=== PATIENT | female | born 1965 | race American Indian/Alaskan Native ===

== ENCOUNTER 2016-10-03 13:51 | Emergency (ER) | payer OTHER ==
--- NOTE | 2016-10-03 14:46 | Emergency Department Report ---
Chief Complaint: Weakness Stated Complaint: LIMITED USE OF LFT LEG/LOW ENERGY Time Seen by Provider: 10/03/16 14:42 - HPI History of Present Illness: PT c/o weakness to her L arm and L leg when she woke up at 0900 on Monday. PT states her bg has been high since Monday. PT states she has no hx of cva - ROS Review of Systems: - cp + elevated bg + left sided weakness - Exam Physical Exam: unequal dock grader strength noted on exam MSE screening note: Focused history and physical exam performed. Due to findings the following was ordered: labs, ekg, ct ED Disposition for MSE Condition: Stable
[2016-10-03 15:06] LABS: Basophils % (Auto) 0.5 % (0.0-1.8); Eosinophils % (Auto) 1.8 % (0.0-4.3); Hematocrit 50.5 % (30.3-42.9); Hemoglobin 16.7 gm/dl (10.1-14.3); Mean Corpuscular HGB Conc 33 % (30-34); Mean Corpuscular Hemoglobin 31 pg (28-32); Mean Corpuscular Volume 93 fl (79-97); Platelet Count 232 K/mm3 (140-440); Red Blood Count 5.42 M/mm3 (3.65-5.03); Red Cell Distribution Width 14.2 % (13.2-15.2)
[2016-10-03 15:16] LABS: INR 0.88 (0.87-1.13)
--- NOTE | 2016-10-03 15:26 | Cat Scan Report ---
CT HEAD WITHOUT CONTRAST INDICATION: Weakness. COMPARISON: None similar. FINDINGS: Noncontrast head CT demonstrates symmetric, age-appropriate ventricles and sulci. Minimal, benign bilateral basal ganglia calcifications. Few left ganglionic/mason radiata/centrum semiovale hypodensities as on axial series 2, images 28-57 noted, exact age indeterminate, though presumed old. No other definite acute infarct, hemorrhage, mass effect or midline shift. No abnormal extra axial fluid collections. Normal posterior fossa with preserved basilar cisterns. Clear anterior paranasal sinuses and right mastoid air cells. Moderate left mastoid air cell opacification. Mild atherosclerotic ICA calcifications. Normal calvarium and scalp. Few radiopaque dental fillings. 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 Please also correlate clinically. If focal neurologic deficits or strong clinical suspicion for an acute infarction exist, additional assessment as with MRI may be considered, as appropriate. Thank you for the opportunity to participate in this patient's care.
[2016-10-03 16:02] LABS: Alanine Aminotransferase 15 units/L (7-56); Albumin 4.1 g/dL (3.9-5); Albumin/Globulin Ratio 1.5 %; Alkaline Phosphatase 97 units/L (35-129); Anion Gap 19 mmol/L; Blood Urea Nitrogen 18 mg/dL (7-17); Calcium 9.1 mg/dL (8.4-10.2); Carbon Dioxide 25 mmol/L (22-30); Creatine Kinase 75 units/L (30-135); Glucose 318 mg/dL (65-100); Potassium 4.6 mmol/L (3.6-5.0); Sodium 139 mmol/L (137-145); Total Protein 6.8 g/dL (6.3-8.2)
[2016-10-03 18:17] LABS: Bilirubin,Urine NEG (Negative); Blood,Urine SM (Negative); Ketones,Urine NEG (Negative); Leukocyte Esterase,Urine TR (Negative); Mucus,Urine FEW /HPF; Nitrite,Urine NEG (Negative); Urobilinogen,Urine < 2.0 mg/dL (<2.0)
[2016-10-03] MEDS ORDERED: APRESOLINE IV ONE (18:55)
[2016-10-03] MEDS ORDERED: APRESOLINE ONE (18:57)
[2016-10-03] MEDS ORDERED: NORMODYNE IV ONE ×3 (20:46→22:00)
--- NOTE | 2016-10-03 21:11 | Emergency Department Report ---
- General Chief complaint: Neuro Symptoms/Deficit Stated complaint: LIMITED USE OF LFT LEG/LOW ENERGY Time Seen by Provider: 10/03/16 14:42 Source: patient Mode of arrival: Ambulatory Limitations: No Limitations - History of Present Illness MD Complaint: generalized weakness, numbness, tingling, lack of energy, difficulty walking -: Gradual Location: LUE (not passing sny gss.) Severity scale (0 -10): 0 - Related Data Previous Rx's Medication Instructions Recorded Last Taken Type Insulin Glargine [Lantus VIAL] 20 unit SUB-Q QHS #1000 units 06/22/16 Unknown Rx Lisinopril [Zestril TAB] 20 mg PO QDAY #30 tablet 06/22/16 Unknown Rx Metformin HCl [Glucophage] 500 mg PO QDAY #30 tablet 06/22/16 Unknown Rx Allergies Allergy/AdvReac Type Severity Reaction Status Date / Time No Known Allergies Allergy Unverified 06/22/16 11:07 ED Review of Systems ROS: Stated complaint: LIMITED USE OF LFT LEG/LOW ENERGY Other details as noted in HPI ED Past Medical Hx - Past Medical History Hx Hypertension: Yes Hx Diabetes: Yes Hx Psychiatric Treatment: Yes (DEPRESSION) - Social History Smoking Status: Current Every Day Smoker - Medications Home Medications: Home Medications Medication Instructions Recorded Confirmed Last Taken Type Insulin Glargine [Lantus VIAL] 20 unit SUB-Q QHS #1000 units 06/22/16 10/03/16 Unknown Rx Lisinopril [Zestril TAB] 20 mg PO QDAY #30 tablet 06/22/16 10/03/16 Unknown Rx Metformin HCl [Glucophage] 500 mg PO QDAY #30 tablet 06/22/16 10/03/16 Unknown Rx ED Physical Exam - General Limitations: No Limitations ED Course Vital Signs 10/03/16 10/03/16 10/03/16 14:42 17:28 17:33 Temperature 98.6 F 97.8 F Pulse Rate 67 69 71 Respiratory 18 16 24 Rate Blood Pressure 225/115 Blood Pressure 204/114 [Right] O2 Sat by Pulse 100 99 Oximetry 10/03/16 10/03/16 10/03/16 17:45 18:00 18:15 Temperature Pulse Rate Respiratory Rate Blood Pressure 242/109 215/102 215/102 Blood Pressure [Right] O2 Sat by Pulse 98 98 97 Oximetry 10/03/16 10/03/16 10/03/16 18:31 18:45 19:00 Temperature Pulse Rate 74 Respiratory 22 Rate Blood Pressure 205/96 205/96 204/100 Blood Pressure [Right] O2 Sat by Pulse 97 98 99 Oximetry 10/03/16 10/03/16 10/03/16 19:05 19:15 19:30 Temperature Pulse Rate 66 71 69 Respiratory 16 14 18 Rate Blood Pressure 219/106 233/111 Blood Pressure 204/100 [Right] O2 Sat by Pulse 100 99 98 Oximetry 10/03/16 10/03/16 10/03/16 19:45 20:01 20:31 Temperature Pulse Rate 108 H 70 88 Respiratory 21 18 20 Rate Blood Pressure 205/103 205/103 205/103 Blood Pressure [Right] O2 Sat by Pulse 98 99 98 Oximetry 10/03/16 10/03/16 10/03/16 20:45 21:00 21:15 Temperature Pulse Rate 84 77 78 Respiratory 25 H 24 13 Rate Blood Pressure 205/103 200/92 204/91 Blood Pressure [Right] O2 Sat by Pulse 99 96 99 Oximetry 10/03/16 10/03/16 10/03/16 21:30 22:00 22:30 Temperature Pulse Rate 86 Respiratory 18 Rate Blood Pressure 211/94 206/88 206/90 Blood Pressure [Right] O2 Sat by Pulse 98 95 97 Oximetry 10/03/16 10/03/16 10/03/16 23:00 23:30 23:41 Temperature Pulse Rate Respiratory Rate Blood Pressure 228/111 214/106 214/106 Blood Pressure [Right] O2 Sat by Pulse 94 96 98 Oximetry 10/04/16 10/04/16 10/04/16 00:00 00:30 01:00 Temperature Pulse Rate 85 81 Respiratory 19 18 Rate Blood Pressure 190/91 183/96 186/87 Blood Pressure [Right] O2 Sat by Pulse 93 96 96 Oximetry ED Medical Decision Making - Lab Data Result diagrams: 10/03/16 14:54 10/03/16 14:54 - Medical Decision Making patient doing well. her BP has been elevated but with no evidence of end organ damage, tolerating po here in the er Critical care attestation.: If time is entered above; I have spent that time in minutes in the direct care of this critically ill patient, excluding procedure time. ED Disposition Clinical Impression: Vomiting Disposition: DC-[id number] OP ADMIT IP TO THIS HOSP Is pt being admited?: No Does the pt Need Aspirin: No Condition: Good Referrals: PRIMARY CARE, [Primary Care Provider] - 3-5 Days Forms: Work/School Release Form(ED) Time of Disposition: 20:53
[2016-10-03] MEDS ORDERED: ZESTRIL ONE (22:54)
[2016-10-03] MEDS ORDERED: ZESTRIL PO ONE (22:57)
[2016-10-04 01:26] VITALS: BP 186/87
== END 2016-10-04 01:35 | disposition admitted as inpatient to this hospital (09) ==
LOC: ED 13:51
DX: R11.10 Vomiting, unspecified (principal); I10 Essential (primary) hypertension; E11.9 Type 2 diabetes mellitus without complications; F17.200 Nicotine dependence, unspecified, uncomplicated; Z79.4 Long term (current) use of insulin
CPT/HCPCS: 36415; 70450; 80053; 81001; 82550; 82805; 82962; 84484; 85025; 85610; 93005; 93010; 96374; 96375; 96376; 99284; J0360

== ENCOUNTER 2017-04-25 08:47 | Emergency (ER) | payer SELFPAY ==
[2017-04-25 09:12] VITALS: BP 184/110
[2017-04-25 10:25] LABS: Basophils # (Auto) 0.1 K/mm3 (0.0-0.1); Basophils % (Auto) 0.5 % (0.0-1.8); Eosinophils # (Auto) 0.1 K/mm3 (0.0-0.4); Eosinophils % (Auto) 1.2 % (0.0-4.3); Hematocrit 42.5 % (30.3-42.9); Lymphocytes # (Auto) 2.4 K/mm3 (1.2-5.4); Lymphocytes % (Auto) 21.2 % (13.4-35.0); Mean Corpuscular HGB Conc 33 % (30-34); Mean Corpuscular Hemoglobin 29 pg (28-32); Mean Corpuscular Volume 89 fl (79-97); Monocytes # (Auto) 0.6 K/mm3 (0.0-0.8); Monocytes % (Auto) 5.6 % (0.0-7.3); Platelet Count 339 K/mm3 (140-440); Red Blood Count 4.79 M/mm3 (3.65-5.03); Red Cell Distribution Width 15.2 % (13.2-15.2)
[2017-04-25 10:42] LABS: BUN/Creatinine Ratio 23; Blood Urea Nitrogen 16 mg/dL (7-17); Hemolysis Index 0
[2017-04-25 11:33] LABS: Bacteria,Urine 2+ /HPF (Negative); Bilirubin,Urine NEG (Negative); Blood,Urine MOD (Negative); Color,Urine Yellow (Yellow); Nitrite,Urine NEG (Negative); Urobilinogen,Urine < 2.0 mg/dL (<2.0)
== END 2017-04-25 21:07 | disposition left against medical advice (07) ==
LOC: ED 08:47
DX: Z53.21 Procedure and treatment not carried out due to patient leaving prior to being seen by health care provider (principal)
CPT/HCPCS: 36415; 80048; 81001; 82805; 82962; 85025

== ENCOUNTER 2017-04-28 18:08 | Inpatient (IN) | payer SELFPAY ==
[2017-04-28 20:48] LABS: Basophils # (Auto) 0.1 K/mm3 (0.0-0.1); Basophils % (Auto) 0.9 % (0.0-1.8); Eosinophils # (Auto) 0.1 K/mm3 (0.0-0.4); Eosinophils % (Auto) 0.9 % (0.0-4.3); Hematocrit 41.7 % (30.3-42.9); Hemoglobin 14.1 gm/dl (10.1-14.3); Lymphocytes # (Auto) 2.2 K/mm3 (1.2-5.4); Lymphocytes % (Auto) 19.7 % (13.4-35.0); Mean Corpuscular HGB Conc 34 % (30-34); Mean Corpuscular Hemoglobin 30 pg (28-32); Mean Corpuscular Volume 90 fl (79-97); Monocytes # (Auto) 0.8 K/mm3 (0.0-0.8); Monocytes % (Auto) 6.7 % (0.0-7.3); Platelet Count 387 K/mm3 (140-440); Red Blood Count 4.67 M/mm3 (3.65-5.03); Red Cell Distribution Width 15.2 % (13.2-15.2)
[2017-04-28 21:29] LABS: Bilirubin,Urine NEG (Negative); Blood,Urine MOD (Negative); Color,Urine Yellow (Yellow); Mucus,Urine FEW /HPF; Nitrite,Urine NEG (Negative); Urobilinogen,Urine < 2.0 mg/dL (<2.0)
--- NOTE | 2017-04-28 21:45 | XRay Report ---
FINAL REPORT EXAM: XR FOOT 2V RT HISTORY: Right great toe wound and swelling TECHNIQUE: 3 views right foot PRIORS: None. FINDINGS: There is soft tissue swelling of the great toe. No soft tissue gas appreciated. No fracture or dislocation identified. Joint spaces are within normal limits. No radiopaque foreign body seen. No soft tissue abnormality identified. IMPRESSION: Soft tissue swelling of the great toe. No acute bony abnormality is identified
--- NOTE | 2017-04-28 22:11 | XRay Report ---
FINAL REPORT EXAM: XR RIBS UNILAT 2V LT HISTORY: Left rib pain TECHNIQUE: Left ribs 4 views PRIORS: None. FINDINGS: No rib fracture identified. No bony lesions seen. No evidence off pneumothorax or pleural effusion within the left amy thorax. Otherwise no acute findings. IMPRESSION: Negative rib series
[2017-04-28 22:21] LABS: BUN/Creatinine Ratio 14; Blood Urea Nitrogen 11 mg/dL (7-17); Calcium 8.7 mg/dL (8.4-10.2); Hemolysis Index 8
[2017-04-29] MEDS ORDERED: NACL 0.9% 1000 ML 1,000 ML IV ONE ×2 (01:38→04:43)
[2017-04-29] MEDS ORDERED: CLEOCIN IV ONE (02:39)
--- NOTE | 2017-04-29 02:41 | Emergency Department Report ---
ED General Adult HPI - General Chief complaint: Hyperglycemia Stated complaint: RIGHT FOOT PAIN Time Seen by Provider: 04/29/17 01:41 Source: patient Mode of arrival: Ambulatory Limitations: No Limitations - History of Present Illness Initial comments: Here for evaluation of multiple complaints. She is out of her diabetes medicine and her blood pressure pills, she fell last week and bruised her left ribs and she has since developed a right great toe with redness and swelling to the right foot -: unknown Location: chest, right, lower extremity Associated Symptoms: chest pain. denies: confusion, cough, diaphoresis, fever/ chills, headaches, loss of appetite, malaise, nausea/vomiting, rash, seizure, shortness of breath, syncope, weakness - Related Data Previous Rx's Medication Instructions Recorded Last Taken Type Insulin Glargine [Lantus VIAL] 20 unit SUB-Q QHS #1000 units 06/22/16 Unknown Rx Lisinopril [Zestril TAB] 20 mg PO QDAY #30 tablet 06/22/16 Unknown Rx Metformin HCl [Glucophage] 500 mg PO QDAY #30 tablet 06/22/16 Unknown Rx Allergies Allergy/AdvReac Type Severity Reaction Status Date / Time No Known Allergies Allergy Unverified 06/22/16 11:07 ED Review of Systems ROS: Stated complaint: RIGHT FOOT PAIN Other details as noted in HPI Comment: All other systems reviewed and negative Constitutional: denies: chills, diaphoresis, fever, malaise, weakness Respiratory: denies: cough, orthopnea, shortness of breath, SOB with exertion, SOB at rest, stridor, wheezing Cardiovascular: chest pain. denies: palpitations, dyspnea on exertion, orthopnea, edema, syncope, paroxysmal nocturnal dyspnea Gastrointestinal: denies: diarrhea, constipation, hematemesis, melena, hematochezia Musculoskeletal: arthralgia, myalgia. denies: joint swelling Skin: change in color Neurological: denies: headache, weakness, numbness, paresthesias, confusion, abnormal gait, vertigo ED Past Medical Hx - Past Medical History Hx Hypertension: Yes Hx Diabetes: Yes Hx Psychiatric Treatment: Yes (DEPRESSION) Additional medical history: Neuropathy - Surgical History Past Surgical History?: No - Social History Smoking Status: Current Every Day Smoker Substance Use Type: None - Medications Home Medications: Home Medications Medication Instructions Recorded Confirmed Last Taken Type Insulin Glargine [Lantus VIAL] 20 unit SUB-Q QHS #1000 units 06/22/16 10/03/16 Unknown Rx Lisinopril [Zestril TAB] 20 mg PO QDAY #30 tablet 06/22/16 10/03/16 Unknown Rx Metformin HCl [Glucophage] 500 mg PO QDAY #30 tablet 06/22/16 10/03/16 Unknown Rx ED Physical Exam - General Limitations: No Limitations General appearance: alert - Head Head exam: Present: atraumatic, normocephalic - Eye Eye exam: Present: normal appearance, PERRL, EOMI - ENT ENT exam: Present: normal exam, normal orophraynx, mucous membranes dry (great toe infection / doral reddness and warmth r foot) - Neck Neck exam: Present: normal inspection. Absent: tenderness, meningismus - Respiratory Respiratory exam: Present: normal lung sounds bilaterally, chest wall tenderness. Absent: respiratory distress, wheezes, rales, rhonchi, stridor, accessory muscle use, decreased breath sounds, prolonged expiratory - Cardiovascular Cardiovascular Exam: Present: regular rate, normal rhythm, normal heart sounds. Absent: irregular rhythm, systolic murmur, diastolic murmur, rubs, gallop - GI/Abdominal GI/Abdominal exam: Present: soft. Absent: distended, tenderness, guarding, rebound, organomegaly, mass, pulsatile mass - Extremities Exam Extremities exam: Present: other (infected diabetic foot ulcer right great toe with redness to the dorsum) - Neurological Exam Neurological exam: Present: oriented X3, CN II-XII intact. Absent: motor sensory deficit - Psychiatric Psychiatric exam: Present: normal affect - Skin Skin exam: Present: erythema. Absent: petechiae, pallor, ecchymosis ED Course Vital Signs 04/28/17 04/28/17 04/29/17 20:00 23:55 00:00 Temperature 97.6 F Pulse Rate 94 H 99 H 99 H Respiratory 16 18 18 Rate Blood Pressure 184/93 149/99 149/99 O2 Sat by Pulse 99 100 Oximetry 04/29/17 04/29/17 04/29/17 01:45 01:48 02:00 Temperature Pulse Rate 104 H 93 H Respiratory 16 15 21 Rate Blood Pressure 163/106 O2 Sat by Pulse 100 100 Oximetry 04/29/17 04/29/1718 03:04 03:16 03:30 Temperature Pulse Rate Respiratory Rate Blood Pressure 163/106 207/103 213/121 O2 Sat by Pulse 100 100 100 Oximetry 04/29/17 04/29/17 04/29/17 03:46 04:00 04:16 Temperature Pulse Rate Respiratory Rate Blood Pressure 213/121 198/109 198/109 O2 Sat by Pulse 99 99 98 Oximetry - Reevaluation(s) Reevaluation #1: 04/29/17 04:53 ED course. Given insulin was given antibiotics were given patient did have blood cultures and x-rays ,the trauma did appear to be isolated to the left rib cage these x-rays were negative he she denies head injury or neck or back pain no abdominal pain ED Medical Decision Making - Lab Data Result diagrams: 04/28/17 Unknown 04/28/17 Unknown - Radiology Data Radiology results: report reviewed - Medical Decision Making case d/w dr lassiter for admit givne elev bg and bp , noncompliance and infected diabetic foot w/ cellulitis, pt is cultured and received abx, ag=15, received ivf and insulin in ed and will admit Critical care attestation.: If time is entered above; I have spent that time in minutes in the direct care of this critically ill patient, excluding procedure time. ED Disposition Clinical Impression: Diabetic foot infection, Poorly controlled diabetes mellitus Disposition: OP ADMIT IP TO THIS HOSP Is pt being admited?: Yes Condition: Stable Instructions: Diabetes Mellitus Type 2 in Adults (ED) Referrals: LEEROY MARINO MD [Primary Care Provider] - 3-5 Days Time of Disposition: 04:57
--- NOTE | 2017-04-29 03:04 | XRay Report ---
FINAL REPORT EXAM: XR CXR CLINICAL INDICATIONS: WHEEZING FINDINGS: Frontal and lateral views the chest were acquired. The heart is normal in size. There is a left midlung and left basilar linear scarring versus atelectasis. No acute consolidative infiltrate is seen. The pulmonary vasculature is within normal limits. IMPRESSION: NO ACUTE CONSOLIDATIVE INFILTRATE
[2017-04-29] MEDS ORDERED: CATAPRES PO ONE (04:40)
[2017-04-29] MEDS ORDERED: D50W (25GM) Syringe IV PRN (04:59)
[2017-04-29] MEDS: NOVOLOG SUB-Q SCH ×6 (08:00→23:32)
[2017-04-29] MEDS ORDERED: TYLENOL PO PRN (11:55)
[2017-04-29] MEDS ORDERED: ZOFRAN IV PRN (11:55)
[2017-04-29] MEDS ORDERED: MILK OF MAGNESIA PO PRN (11:55)
[2017-04-29] MEDS ORDERED: DULCOLAX PR PRN (11:55)
[2017-04-29] MEDS ORDERED: MORPHINE IV PRN (11:55)
--- NOTE | 2017-04-29 11:55 | History and Physical Report ---
History of Present Illness Date of examination: 04/29/17 Date of admission: 04/29/17 04:58 Chief complaint: Rt Foot swelling History of present illness: History of Present Illness 52 y/o female with pmh of HTN and DM noncompliant comes in for Rt great toe infection ulcer and rt foot swelling.No fever or chills She fell last week and bruised her left ribs and she has since developed a right great toe with redness and swelling to the right foot Location: chest, right, lower extremity Associated Symptoms: chest pain. denies: confusion, cough, diaphoresis, fever/ chills, headaches, loss of appetite, malaise, nausea/vomiting, rash, seizure, shortness of breath, syncope, weakness Past Medical History Hx Hypertension: Yes Hx Diabetes: Yes Hx Psychiatric Treatment: Yes (DEPRESSION) Additional medical history: Neuropathy Surgical History Past Surgical History?: No Social History Smoking Status: Current Every Day Smoker Substance Use Type: None Medications Home Medications: Home Medications Medication Instructions Recorded Confirmed Last Taken Type Insulin Glargine [Lantus VIAL] 20 unit SUB-Q QHS #1000 units 06/22/16 10/03/16 Unknown Rx Lisinopril [Zestril TAB] 20 mg PO QDAY #30 tablet 06/22/16 10/03/16 Unknown Rx Metformin HCl [Glucophage] 500 mg PO QDAY #30 tablet 06/22/16 10/03/16 Unknown Rx Review of Systems Stated complaint: RIGHT FOOT PAIN Other details as noted in HPI Comment: All other systems reviewed and negative Constitutional: denies: chills, diaphoresis, fever, malaise, weakness Respiratory: denies: cough, orthopnea, shortness of breath, SOB with exertion, SOB at rest, stridor, wheezing Cardiovascular: chest pain. denies: palpitations, dyspnea on exertion, orthopnea, edema, syncope, paroxysmal nocturnal dyspnea Gastrointestinal: denies: diarrhea, constipation, hematemesis, melena, hematochezia Musculoskeletal: arthralgia, myalgia. denies: joint swelling Skin: change in color Neurological: denies: headache, weakness, numbness, paresthesias, confusion, abnormal gait, vertigo Medications and Allergies Allergies Allergy/AdvReac Type Severity Reaction Status Date / Time No Known Allergies Allergy Unverified 06/22/16 11:07 Home Medications Medication Instructions Recorded Confirmed Last Taken Type Insulin Glargine [Lantus VIAL] 20 unit SUB-Q QHS #1000 units 06/22/16 04/29/17 Unknown Rx Lisinopril [Zestril TAB] 20 mg PO QDAY #30 tablet 06/22/16 04/29/17 Unknown Rx Metformin HCl [Glucophage] 500 mg PO QDAY #30 tablet 06/22/16 04/29/17 Unknown Rx Active Meds: Active Medications Dextrose (D50w (25gm) Syringe) 50 ml IV PRN PRN PRN Reason: Hypoglycemia Insulin Aspart (Novolog) 0 units SUB-Q ACHS VERITO PRN Reason: Protocol Last Admin: 04/29/17 08:00 Dose: 3 units Exam - Constitutional Vitals: Temp Pulse Resp BP Pulse Ox 98.5 F 79 20 170/101 98 04/29/17 07:24 04/29/17 07:18 04/29/17 07:18 04/29/17 07:18 04/29/17 07:18 General appearance: Present: no acute distress, well-nourished - EENT Eyes: Present: PERRL ENT: hearing intact, clear oral mucosa - Neck Neck: Present: supple, normal ROM - Respiratory Respiratory effort: normal Respiratory: bilateral: CTA - Cardiovascular Heart rate: 76 Rhythm: regular Heart Sounds: Present: S1 & S2. Absent: rub, click - Extremities Extremities: no ischemia, pulses intact, pulses symmetrical, No edema, abnormal (Rt great toe red and swollen Rt foot swollen and warm to touch) Peripheral Pulses: within normal limits - Abdominal General gastrointestinal: Present: soft, non-tender, non-distended, normal bowel sounds Female genitourinary: Present: normal - Integumentary Integumentary: Present: clear, warm, dry - Musculoskeletal Musculoskeletal: gait normal, strength equal bilaterally - Psychiatric Psychiatric: appropriate mood/affect, intact judgment & insight - Neurologic Neurologic: CNII-XII intact, moves all extremities Results - Labs CBC & Chem 7: 04/28/17 Unknown 04/28/17 Unknown Labs: Laboratory Last Values WBC 11.4 K/mm3 (4.5-11.0) H 04/28/17 Unknown RBC 4.67 M/mm3 (3.65-5.03) 04/28/17 Unknown Hgb 14.1 gm/dl (10.1-14.3) 04/28/17 Unknown Hct 41.7 % (30.3-42.9) 04/28/17 Unknown MCV 90 fl (79-97) 04/28/17 Unknown MCH 30 pg (28-32) 04/28/17 Unknown MCHC 34 % (30-34) 04/28/17 Unknown RDW 15.2 % (13.2-15.2) 04/28/17 Unknown Plt Count 387 K/mm3 (140-440) 04/28/17 Unknown Lymph % (Auto) 19.7 % (13.4-35.0) 04/28/17 Unknown [place] % (Auto) 6.7 % (0.0-7.3) 04/28/17 Unknown Eos % (Auto) 0.9 % (0.0-4.3) 04/28/17 Unknown Baso % (Auto) 0.9 % (0.0-1.8) 04/28/17 Unknown Lymph # 2.2 K/mm3 (1.2-5.4) 04/28/17 Unknown [place] # 0.8 K/mm3 (0.0-0.8) 04/28/17 Unknown Eos # 0.1 K/mm3 (0.0-0.4) 04/28/17 Unknown Baso # 0.1 K/mm3 (0.0-0.1) 04/28/17 Unknown Seg Neutrophils % 71.8 % (40.0-70.0) H 04/28/17 Unknown Seg Neutrophils # 8.2 K/mm3 (1.8-7.7) H 04/28/17 Unknown Sodium 138 mmol/L (137-145) 04/28/17 Unknown Potassium 3.9 mmol/L (3.6-5.0) 04/28/17 Unknown Chloride 96.8 mmol/L (98-107) L 04/28/17 Unknown Carbon Dioxide 26 mmol/L (22-30) 04/28/17 Unknown Anion Gap 19 mmol/L 04/28/17 Unknown BUN 11 mg/dL (7-17) 04/28/17 Unknown Creatinine 0.8 mg/dL (0.7-1.2) 04/28/17 Unknown Estimated GFR > 60 ml/min 04/28/17 Unknown BUN/Creatinine Ratio 14 % 04/28/17 Unknown Glucose 447 mg/dL (65-100) H 04/28/17 Unknown POC Glucose 192 (70-105) H 04/29/17 08:02 Calcium 8.7 mg/dL (8.4-10.2) 04/28/17 Unknown Urine Color Yellow (Yellow) 04/28/17 Unknown Urine Turbidity Clear (Clear) 04/28/17 Unknown Urine pH 6.0 (5.0-7.0) 04/28/17 Unknown Ur Specific [place] 1.020 (1.003-1.030) 04/28/17 Unknown Urine Protein 100 mg/dl mg/dL (Negative) 04/28/17 Unknown Urine Glucose (UA) >=500 mg/dL (Negative) 04/28/17 Unknown Urine Ketones Tr mg/dL (Negative) 04/28/17 Unknown Urine Blood Mod (Negative) 04/28/17 Unknown Urine Nitrite Neg (Negative) 04/28/17 Unknown Urine Bilirubin Neg (Negative) 04/28/17 Unknown Urine Urobilinogen < 2.0 mg/dL (<2.0) 04/28/17 Unknown Ur Leukocyte Esterase Neg (Negative) 04/28/17 Unknown Urine WBC (Auto) 7.0 /HPF (0.0-6.0) H 04/28/17 Unknown Urine RBC (Auto) 6.0 /HPF (0.0-6.0) 04/28/17 Unknown U Epithel Cells (Auto) 5.0 /HPF (0-13.0) 04/28/17 Unknown Urine Mucus Few /HPF 04/28/17 Unknown - Imaging and Cardiology Chest x-ray: report reviewed (No rib fractures) Assessment and Plan VTE prophylaxis?: Chemical Plan of care discussed with patient/family: Yes - Patient Problems (1) Diabetic foot infection Current Visit: Yes Status: Acute Plan to address problem: IV abx and wound care for now Surgery consult (2) Poorly controlled diabetes mellitus Current Visit: Yes Status: Chronic Plan to address problem: Adjust meds Patient will benefit from Insulin Hopefully she will be able to buy Relion 11/13 which is available at [employer] for 25$$ at [employer] Check A1c (3) HTN (hypertension) Current Visit: Yes Status: Chronic Qualifiers: Hypertension type: essential hypertension Qualified Code(s): I10 - Essential (primary) hypertension Plan to address problem: Cont Antihypertensives (4) Chest wall pain Current Visit: Yes Status: Acute (5) Acute chest wall pain Current Visit: Yes Status: Acute Plan to address problem: Sec to fall. No rib fractures (6) DVT prophylaxis Current Visit: Yes Status: Acute Plan to address problem: lovenox
[2017-04-29] MEDS ORDERED: VANCOMYCIN PHARMACY TO DOSE IV SCH (13:00)
[2017-04-29] MEDS: UNASYN/NS 3 GM/100 ML 3 GM/100 ML BAG IV SCH ×2 (13:55→19:11)
[2017-04-29] MEDS ORDERED: VANCOMYCIN 1,500 MG in NACL 0.9% 500 ML 500 ML IV ONE (14:00)
[2017-04-29] MEDS ORDERED: NON-FORMULARY (Insulin Glargine 20 UNIT) SUB-Q SCH (22:00)
[2017-04-29] MEDS: LEVEMIR SUB-Q SCH (23:32)
[2017-04-30] MEDS: PEPCID IV SCH ×3 (00:24→23:33)
[2017-04-30] MEDS: VANCOMYCIN 1,250 MG in NACL 0.9% 250ML 250 ML IV SCH ×2 (02:23→14:44)
[2017-04-30] MEDS: UNASYN/NS 3 GM/100 ML 3 GM/100 ML BAG IV SCH ×5 (04:58→23:53)
[2017-04-30] MEDS: NOVOLOG SUB-Q SCH ×5 (08:49→23:51)
--- NOTE | 2017-04-30 09:21 | Progress Note ---
Assessment and Plan Assessment and plan: Sepsis. Present on admission. Etiology secondary to right diabetic foot infection. Continue IV antibiotics and follow-up cultures. Diabetic foot infection. Patient with right great toe infection. Continue IV antibiotics and wound care. Surgery consulted. Diabetes mellitus type 2. Uncontrolled. Long-acting insulin has been added to the regimen. Increase 70/30 insulin to 25 units BID. Follow-up hemoglobin A1c. Continue Accu-Cheks and sliding scale. Hypertension. Continue antihypertensive medications. Costochondritis. Etiology secondary to fall. No rib fractures. DVT prophylaxis. Continue Lovenox. History Interval history: No new issues overnight. Hospitalist Physical - Constitutional Vitals: Temp Pulse Resp BP Pulse Ox 98.5 F 85 20 170/69 99 04/29/17 21:00 04/29/17 21:00 04/29/17 22:00 04/29/17 21:00 04/29/17 22:00 General appearance: Present: no acute distress, well-nourished - EENT Eyes: Present: PERRL, EOM intact ENT: hearing intact, clear oral mucosa, dentition normal - Neck Neck: Present: supple, normal ROM - Respiratory Respiratory effort: normal Respiratory: bilateral: CTA - Cardiovascular Rhythm: regular Heart Sounds: Present: S1 & S2. Absent: gallop, rub - Extremities Extremities: no ischemia, Full ROM Extremity abnormal: erythema, other (right great toe infection) - Abdominal General gastrointestinal: soft, non-tender, non-distended, normal bowel sounds - Integumentary Integumentary: Present: clear, warm, dry - Neurologic Neurologic: CNII-XII intact, moves all extremities Results - Labs CBC & Chem 7: 04/28/17 Unknown 04/28/17 Unknown Labs: Laboratory Last Values WBC 11.4 K/mm3 (4.5-11.0) H 04/28/17 Unknown RBC 4.67 M/mm3 (3.65-5.03) 04/28/17 Unknown Hgb 14.1 gm/dl (10.1-14.3) 04/28/17 Unknown Hct 41.7 % (30.3-42.9) 04/28/17 Unknown MCV 90 fl (79-97) 04/28/17 Unknown MCH 30 pg (28-32) 04/28/17 Unknown MCHC 34 % (30-34) 04/28/17 Unknown RDW 15.2 % (13.2-15.2) 04/28/17 Unknown Plt Count 387 K/mm3 (140-440) 04/28/17 Unknown Lymph % (Auto) 19.7 % (13.4-35.0) 04/28/17 Unknown [place] % (Auto) 6.7 % (0.0-7.3) 04/28/17 Unknown Eos % (Auto) 0.9 % (0.0-4.3) 04/28/17 Unknown Baso % (Auto) 0.9 % (0.0-1.8) 04/28/17 Unknown Lymph # 2.2 K/mm3 (1.2-5.4) 04/28/17 Unknown [place] # 0.8 K/mm3 (0.0-0.8) 04/28/17 Unknown Eos # 0.1 K/mm3 (0.0-0.4) 04/28/17 Unknown Baso # 0.1 K/mm3 (0.0-0.1) 04/28/17 Unknown Seg Neutrophils % 71.8 % (40.0-70.0) H 04/28/17 Unknown Seg Neutrophils # 8.2 K/mm3 (1.8-7.7) H 04/28/17 Unknown Sodium 138 mmol/L (137-145) 04/28/17 Unknown Potassium 3.9 mmol/L (3.6-5.0) 04/28/17 Unknown Chloride 96.8 mmol/L (98-107) L 04/28/17 Unknown Carbon Dioxide 26 mmol/L (22-30) 04/28/17 Unknown Anion Gap 19 mmol/L 04/28/17 Unknown BUN 11 mg/dL (7-17) 04/28/17 Unknown Creatinine 0.8 mg/dL (0.7-1.2) 04/28/17 Unknown Estimated GFR > 60 ml/min 04/28/17 Unknown BUN/Creatinine Ratio 14 % 04/28/17 Unknown Glucose 447 mg/dL (65-100) H 04/28/17 Unknown POC Glucose 250 (70-105) H 04/30/17 08:12 Calcium 8.7 mg/dL (8.4-10.2) 04/28/17 Unknown Urine Color Yellow (Yellow) 04/28/17 Unknown Urine Turbidity Clear (Clear) 04/28/17 Unknown Urine pH 6.0 (5.0-7.0) 04/28/17 Unknown Ur Specific [place] 1.020 (1.003-1.030) 04/28/17 Unknown Urine Protein 100 mg/dl mg/dL (Negative) 04/28/17 Unknown Urine Glucose (UA) >=500 mg/dL (Negative) 04/28/17 Unknown Urine Ketones Tr mg/dL (Negative) 04/28/17 Unknown Urine Blood Mod (Negative) 04/28/17 Unknown Urine Nitrite Neg (Negative) 04/28/17 Unknown Urine Bilirubin Neg (Negative) 04/28/17 Unknown Urine Urobilinogen < 2.0 mg/dL (<2.0) 04/28/17 Unknown Ur Leukocyte Esterase Neg (Negative) 04/28/17 Unknown Urine WBC (Auto) 7.0 /HPF (0.0-6.0) H 04/28/17 Unknown Urine RBC (Auto) 6.0 /HPF (0.0-6.0) 04/28/17 Unknown U Epithel Cells (Auto) 5.0 /HPF (0-13.0) 04/28/17 Unknown Urine Mucus Few /HPF 04/28/17 Unknown
[2017-04-30] MEDS: ZESTRIL PO SCH (09:43)
[2017-04-30] MEDS: APRESOLINE IV PRN ×2 (19:30→23:34)
[2017-05-01] MEDS: LEVEMIR SUB-Q SCH ×2 (01:01→22:08)
[2017-05-01] MEDS: VANCOMYCIN 1,250 MG in NACL 0.9% 250ML 250 ML IV SCH ×3 (03:07→23:20)
[2017-05-01 05:42] LABS: Basophils # (Auto) 0.1 K/mm3 (0.0-0.1); Basophils % (Auto) 0.6 % (0.0-1.8); Eosinophils # (Auto) 0.1 K/mm3 (0.0-0.4); Eosinophils % (Auto) 0.8 % (0.0-4.3); Hematocrit 36.7 % (30.3-42.9); Hemoglobin 12.1 gm/dl (10.1-14.3); Lymphocytes # (Auto) 2.3 K/mm3 (1.2-5.4); Lymphocytes % (Auto) 22.7 % (13.4-35.0); Mean Corpuscular HGB Conc 33 % (30-34); Mean Corpuscular Hemoglobin 29 pg (28-32); Mean Corpuscular Volume 88 fl (79-97); Monocytes # (Auto) 0.5 K/mm3 (0.0-0.8); Platelet Count 348 K/mm3 (140-440); Red Blood Count 4.17 M/mm3 (3.65-5.03); Red Cell Distribution Width 15.3 % (13.2-15.2)
[2017-05-01 06:11] LABS: BUN/Creatinine Ratio 10; Blood Urea Nitrogen 5 mg/dL (7-17); Calcium 7.8 mg/dL (8.4-10.2); Hemolysis Index 4
[2017-05-01] MEDS: UNASYN/NS 3 GM/100 ML 3 GM/100 ML BAG IV SCH ×3 (06:19→18:25)
[2017-05-01] MEDS: NOVOLOG SUB-Q SCH ×4 (08:59→22:26)
--- NOTE | 2017-05-01 10:02 | Consultation ---
History of Present Illness - Reason for Consult Consult date: 05/01/17 right toe infection - History of Present Illness Patient with a history of uncontrolled diabetes and uncontrolled hypertension secondary to her inability to afford her medications. She noted the development of an ulcer/wound to the plantar surface of her right first toe. Ultrasound of her arterial system demonstrates multiphasic flow throughout her bilateral lower extremities. Patient has palpable dorsalis pedis and posterior tibial pulses as well. Past History Past Medical History: diabetes, hypertension Social history: no significant social history Family history: no significant family history Medications and Allergies Allergies Allergy/AdvReac Type Severity Reaction Status Date / Time No Known Allergies Allergy Unverified 06/22/16 11:07 Home Medications Medication Instructions Recorded Confirmed Last Taken Type Insulin Glargine [Lantus VIAL] 20 unit SUB-Q QHS #1000 units 06/22/16 04/29/17 Unknown Rx Lisinopril [Zestril TAB] 20 mg PO QDAY #30 tablet 06/22/16 04/29/17 Unknown Rx Metformin HCl [Glucophage] 500 mg PO QDAY #30 tablet 06/22/16 04/29/17 Unknown Rx Active Meds: Active Medications Acetaminophen (Tylenol) 650 mg PO Q4H PRN PRN Reason: Pain MILD(1-3)/Fever >100.5/COTTRELL Bisacodyl (Dulcolax) 10 mg PA QDAY PRN PRN Reason: Constipation unrelieved by MOM Famotidine (Pepcid) 20 mg IV BID [facility] Last Admin: 04/30/17 23:33 Dose: 20 mg Hydralazine HCl (Apresoline) 10 mg IV Q3HR PRN PRN Reason: Hypertension Last Admin: 04/30/17 23:34 Dose: 10 mg Sodium Chloride (Nacl 0.45% 1000 Ml) 1,000 mls @ 42 mls/hr IV DIRECT VERITO Ampicillin Sodium/Sulbactam Sodium (Unasyn/Ns 3 Gm/100 Ml) 3 gm in 100 mls @ 100 mls/hr IV Q6HR VERITO PRN Reason: Protocol Last Admin: 05/01/17 06:19 Dose: 100 mls/hr Vancomycin HCl 1,250 mg/ (Sodium Chloride) 262.5 mls @ 166.667 mls/hr IV Q12H [facility] Last Admin: 05/01/17 03:07 Dose: 166.667 mls/hr Insulin Aspart (Novolog) 0 units SUB-Q ACHS [facility] PRN Reason: Protocol Last Admin: 05/01/17 08:59 Dose: Not Given Insulin Detemir (Levemir) 20 units SUB-Q QHS [facility] Last Admin: 05/01/17 01:01 Dose: 20 units Insulin Human Isoph/Insulin Regular (Novolin 70/30) 25 unit SUB-Q BIDDIAB [facility] Last Admin: 05/01/17 09:03 Dose: 25 unit Lisinopril (Zestril) 20 mg PO QDAY [facility] Last Admin: 04/30/17 09:43 Dose: 20 mg Magnesium Hydroxide (Milk Of Magnesia) 30 ml PO Q4H PRN PRN Reason: Constipation Morphine Sulfate (Morphine) 2 mg IV Q4H PRN PRN Reason: Pain, Moderate (4-6) Ondansetron HCl (Zofran) 4 mg IV Q8H PRN PRN Reason: N/V unrelieved by Reglan Last Admin: 05/01/17 01:01 Dose: 4 mg Vancomycin HCl (Vancomycin Pharmacy To Dose) 1 each IV PKCONSULT [facility] PRN Reason: Protocol Review of Systems All systems: negative Exam - Constitutional Vitals: Temp Pulse Resp BP Pulse Ox 98.7 F 88 18 161/81 97 05/01/17 07:38 05/01/17 07:38 05/01/17 07:38 05/01/17 07:38 05/01/17 07:38 General appearance: Present: no acute distress - EENT Eyes: Present: PERRL, EOM intact ENT: hearing intact - Neck Neck: Present: supple, normal ROM - Respiratory Respiratory effort: normal - Extremities Extremities: abnormal (per hpi) - Abdominal General gastrointestinal: Present: deferred Female genitourinary: Present: deferred - Rectal Rectal Exam: deferred - Psychiatric Psychiatric: appropriate mood/affect, cooperative Results - Labs CBC & Chem 7: 05/01/17 05:31 05/01/17 05:31 Labs: Abnormal lab results 04/30/17 04/30/17 05/01/17 Range/Units 17:45 23:27 05:31 RDW (13.2-15.2) % Seg Neutrophils % (40.0-70.0) % Potassium (3.6-5.0) mmol/L BUN (7-17) mg/dL Creatinine (0.7-1.2) mg/dL Glucose (65-100) mg/dL POC Glucose 129 H 160 H (70-105) Hemoglobin A1c 14.3 H (4-6) % Calcium (8.4-10.2) mg/dL 05/01/17 05/01/17 Range/Units 05:31 05:31 RDW 15.3 H (13.2-15.2) % Seg Neutrophils % 70.9 H (40.0-70.0) % Potassium 3.4 L (3.6-5.0) mmol/L BUN 5 L (7-17) mg/dL Creatinine 0.5 L (0.7-1.2) mg/dL Glucose 160 H (65-100) mg/dL POC Glucose (70-105) Hemoglobin A1c (4-6) % Calcium 7.8 L (8.4-10.2) mg/dL - Imaging and Cardiology Venous US: image reviewed Assessment and Plan Patient with right toe infection. She will need consultation with either orthopedics or podiatry as well as wound care. Additionally, the patient needs more appropriate control of her diabetes. No vascular interventions at this time.
[2017-05-01] MEDS: PEPCID IV SCH ×2 (10:32→22:02)
--- NOTE | 2017-05-01 11:05 | Progress Note ---
Assessment and Plan Assessment and plan: Sepsis. Present on admission. Etiology secondary to right diabetic foot infection. Continue IV antibiotics and follow-up cultures. Diabetic foot infection. Patient with right great toe infection. Continue IV antibiotics and wound care. Orthopedics Surgery consulted. Vascular surgery reports no intervention at this time. Diabetes mellitus type 2. Better controlled. Long-acting insulin has been added to the regimen. Increased 70/30 insulin to 25 units BID. Follow-up hemoglobin A1c. Continue Accu-Cheks and sliding scale. Hypertension. Continue antihypertensive medications. Costochondritis. Etiology secondary to fall. No rib fractures. Pain control DVT prophylaxis. Continue Lovenox. History Interval history: No new issues overnight. Hospitalist Physical - Constitutional Vitals: Temp Pulse Resp BP Pulse Ox 98.7 F 88 18 161/81 97 05/01/17 07:38 05/01/17 07:38 05/01/17 07:38 05/01/17 07:38 05/01/17 07:38 General appearance: Present: no acute distress, well-nourished - EENT Eyes: Present: PERRL, EOM intact ENT: hearing intact, clear oral mucosa, dentition normal - Neck Neck: Present: supple, normal ROM - Respiratory Respiratory effort: normal Respiratory: bilateral: CTA - Cardiovascular Rhythm: regular Heart Sounds: Present: S1 & S2. Absent: gallop, rub - Extremities Extremities: no ischemia, No edema, Full ROM - Abdominal General gastrointestinal: soft, non-tender, non-distended, normal bowel sounds - Integumentary Integumentary: Present: clear, warm, dry - Neurologic Neurologic: CNII-XII intact, moves all extremities Results - Labs CBC & Chem 7: 05/01/17 05:31 05/01/17 05:31 Labs: Laboratory Last Values WBC 10.3 K/mm3 (4.5-11.0) 05/01/17 05:31 RBC 4.17 M/mm3 (3.65-5.03) 05/01/17 05:31 Hgb 12.1 gm/dl (10.1-14.3) 05/01/17 05:31 Hct 36.7 % (30.3-42.9) 05/01/17 05:31 MCV 88 fl (79-97) 05/01/17 05:31 MCH 29 pg (28-32) 05/01/17 05:31 MCHC 33 % (30-34) 05/01/17 05:31 RDW 15.3 % (13.2-15.2) H 05/01/17 05:31 Plt Count 348 K/mm3 (140-440) 05/01/17 05:31 Lymph % (Auto) 22.7 % (13.4-35.0) 05/01/17 05:31 [place] % (Auto) 5.0 % (0.0-7.3) 05/01/17 05:31 Eos % (Auto) 0.8 % (0.0-4.3) 05/01/17 05:31 Baso % (Auto) 0.6 % (0.0-1.8) 05/01/17 05:31 Lymph # 2.3 K/mm3 (1.2-5.4) 05/01/17 05:31 [place] # 0.5 K/mm3 (0.0-0.8) 05/01/17 05:31 Eos # 0.1 K/mm3 (0.0-0.4) 05/01/17 05:31 Baso # 0.1 K/mm3 (0.0-0.1) 05/01/17 05:31 Seg Neutrophils % 70.9 % (40.0-70.0) H 05/01/17 05:31 Seg Neutrophils # 7.3 K/mm3 (1.8-7.7) 05/01/17 05:31 Sodium 142 mmol/L (137-145) 05/01/17 05:31 Potassium 3.4 mmol/L (3.6-5.0) L 05/01/17 05:31 Chloride 105.2 mmol/L (98-107) 05/01/17 05:31 Carbon Dioxide 24 mmol/L (22-30) 05/01/17 05:31 Anion Gap 16 mmol/L 05/01/17 05:31 BUN 5 mg/dL (7-17) L 05/01/17 05:31 Creatinine 0.5 mg/dL (0.7-1.2) L 05/01/17 05:31 Estimated GFR > 60 ml/min 05/01/17 05:31 BUN/Creatinine Ratio 10 % 05/01/17 05:31 Glucose 160 mg/dL (65-100) H 05/01/17 05:31 POC Glucose 160 (70-105) H 04/30/17 23:27 Hemoglobin A1c 14.3 % (4-6) H 05/01/17 05:31 Calcium 7.8 mg/dL (8.4-10.2) L 05/01/17 05:31 Urine Color Yellow (Yellow) 04/28/17 Unknown Urine Turbidity Clear (Clear) 04/28/17 Unknown Urine pH 6.0 (5.0-7.0) 04/28/17 Unknown Ur Specific [place] 1.020 (1.003-1.030) 04/28/17 Unknown Urine Protein 100 mg/dl mg/dL (Negative) 04/28/17 Unknown Urine Glucose (UA) >=500 mg/dL (Negative) 04/28/17 Unknown Urine Ketones Tr mg/dL (Negative) 04/28/17 Unknown Urine Blood Mod (Negative) 04/28/17 Unknown Urine Nitrite Neg (Negative) 04/28/17 Unknown Urine Bilirubin Neg (Negative) 04/28/17 Unknown Urine Urobilinogen < 2.0 mg/dL (<2.0) 04/28/17 Unknown Ur Leukocyte Esterase Neg (Negative) 04/28/17 Unknown Urine WBC (Auto) 7.0 /HPF (0.0-6.0) H 04/28/17 Unknown Urine RBC (Auto) 6.0 /HPF (0.0-6.0) 04/28/17 Unknown U Epithel Cells (Auto) 5.0 /HPF (0-13.0) 04/28/17 Unknown Urine Mucus Few /HPF 04/28/17 Unknown
[2017-05-01] MEDS: NACL 0.45% 1000 ML 1,000 ML IV SCH (13:42)
[2017-05-01] MEDS: ZESTRIL PO SCH (13:43)
--- NOTE | 2017-05-01 16:47 | Consultation ---
History of Present Illness - HPI Consult date: 05/01/17 Consult reason: other History of present illness: 52 y/o female with c/o right great toe pain and swelling x 1 wk, denies trauma...admitted for sepsis now on IVAB's... Past History Past Medical History: diabetes, hypertension Social history: no significant social history Family history: no significant family history Medications and Allergies Allergies Allergy/AdvReac Type Severity Reaction Status Date / Time No Known Allergies Allergy Unverified 06/22/16 11:07 Home Medications Medication Instructions Recorded Confirmed Last Taken Type Insulin Glargine [Lantus VIAL] 20 unit SUB-Q QHS #1000 units 06/22/16 04/29/17 Unknown Rx Lisinopril [Zestril TAB] 20 mg PO QDAY #30 tablet 06/22/16 04/29/17 Unknown Rx Metformin HCl [Glucophage] 500 mg PO QDAY #30 tablet 06/22/16 04/29/17 Unknown Rx Active Meds: Active Medications Acetaminophen (Tylenol) 650 mg PO Q4H PRN PRN Reason: Pain MILD(1-3)/Fever >100.5/COTTRELL Bisacodyl (Dulcolax) 10 mg DC QDAY PRN PRN Reason: Constipation unrelieved by MOM Famotidine (Pepcid) 20 mg IV BID [facility] Last Admin: 05/01/17 10:32 Dose: 20 mg Hydralazine HCl (Apresoline) 10 mg IV Q3HR PRN PRN Reason: Hypertension Last Admin: 04/30/17 23:34 Dose: 10 mg Sodium Chloride (Nacl 0.45% 1000 Ml) 1,000 mls @ 42 mls/hr IV DIRECT [facility] Last Admin: 05/01/17 13:42 Dose: 42 mls/hr Ampicillin Sodium/Sulbactam Sodium (Unasyn/Ns 3 Gm/100 Ml) 3 gm in 100 mls @ 100 mls/hr IV Q6HR [facility] PRN Reason: Protocol Last Admin: 05/01/17 06:19 Dose: 100 mls/hr Vancomycin HCl 1,250 mg/ (Sodium Chloride) 262.5 mls @ 166.667 mls/hr IV Q12H [facility] Last Admin: 05/01/17 03:07 Dose: 166.667 mls/hr Insulin Aspart (Novolog) 0 units SUB-Q ACHS [facility] PRN Reason: Protocol Last Admin: 05/01/17 16:33 Dose: Not Given Insulin Detemir (Levemir) 20 units SUB-Q QHS [facility] Last Admin: 05/01/17 01:01 Dose: 20 units Insulin Human Isoph/Insulin Regular (Novolin 70/30) 25 unit SUB-Q BIDDIAB [facility] Last Admin: 05/01/17 16:37 Dose: Not Given Lisinopril (Zestril) 20 mg PO QDAY [facility] Last Admin: 05/01/17 13:43 Dose: 20 mg Magnesium Hydroxide (Milk Of Magnesia) 30 ml PO Q4H PRN PRN Reason: Constipation Morphine Sulfate (Morphine) 2 mg IV Q4H PRN PRN Reason: Pain, Moderate (4-6) Ondansetron HCl (Zofran) 4 mg IV Q8H PRN PRN Reason: N/V unrelieved by Reglan Last Admin: 05/01/17 01:01 Dose: 4 mg Vancomycin HCl (Vancomycin Pharmacy To Dose) 1 each IV PKCONSULT [facility] PRN Reason: Protocol Assessment and Plan would continue dressing changes and IVAB for now, hold off on debridement in OR...
[2017-05-01] MEDS: APRESOLINE IV PRN (23:13)
[2017-05-02] MEDS: UNASYN/NS 3 GM/100 ML 3 GM/100 ML BAG IV SCH ×4 (01:13→18:20)
[2017-05-02 06:37] LABS: Basophils % (Auto) 0.6 % (0.0-1.8); Eosinophils # (Auto) 0.2 K/mm3 (0.0-0.4); Eosinophils % (Auto) 1.9 % (0.0-4.3); Hematocrit 36.4 % (30.3-42.9); Hemoglobin 11.8 gm/dl (10.1-14.3); Lymphocytes # (Auto) 2.8 K/mm3 (1.2-5.4); Lymphocytes % (Auto) 33.4 % (13.4-35.0); Mean Corpuscular HGB Conc 33 % (30-34); Mean Corpuscular Hemoglobin 29 pg (28-32); Mean Corpuscular Volume 88 fl (79-97); Monocytes # (Auto) 0.5 K/mm3 (0.0-0.8); Monocytes % (Auto) 6.2 % (0.0-7.3); Platelet Count 354 K/mm3 (140-440); Red Blood Count 4.12 M/mm3 (3.65-5.03); Red Cell Distribution Width 15.8 % (13.2-15.2)
[2017-05-02 06:56] LABS: BUN/Creatinine Ratio 12; Blood Urea Nitrogen 7 mg/dL (7-17); Calcium 7.9 mg/dL (8.4-10.2); Hemolysis Index 4
[2017-05-02] MEDS: NOVOLOG SUB-Q SCH ×3 (08:37→18:20)
[2017-05-02] MEDS: PEPCID IV SCH (09:54)
[2017-05-02] MEDS: VANCOMYCIN 1,250 MG in NACL 0.9% 250ML 250 ML IV SCH ×2 (09:54→20:34)
[2017-05-02] MEDS: ZESTRIL PO SCH (09:55)
--- NOTE | 2017-05-02 10:31 | Progress Note ---
Assessment and Plan Assessment and plan: Sepsis. Present on admission. Etiology secondary to right diabetic foot infection. Continue IV antibiotics and follow-up cultures. Diabetic foot infection. Patient with right great toe infection. Continue IV antibiotics and wound care. Orthopedics Surgery recommends IV antibiotics, monitoring, and no debridement at this time. Vascular surgery reports no intervention at this time. Diabetes mellitus type 2. Better controlled. Long-acting insulin has been added to the regimen. Increased 70/30 insulin to 25 units BID. Follow-up hemoglobin A1c. Continue Accu-Cheks and sliding scale. Hypertension. Continue antihypertensive medications. Costochondritis. Etiology secondary to fall. No rib fractures. Pain control DVT prophylaxis. Continue Lovenox. History Interval history: No new issues overnight. Hospitalist Physical - Constitutional Vitals: Temp Pulse Resp BP Pulse Ox 98.2 F 103 H 18 110/80 93 05/02/17 08:10 05/02/17 08:10 05/02/17 08:10 05/02/17 09:55 05/02/17 08:10 General appearance: Present: no acute distress, well-nourished - EENT Eyes: Present: PERRL, EOM intact ENT: hearing intact, clear oral mucosa, dentition normal - Neck Neck: Present: supple, normal ROM - Respiratory Respiratory effort: normal Respiratory: bilateral: CTA - Cardiovascular Rhythm: regular Heart Sounds: Present: S1 & S2. Absent: gallop, rub - Extremities Extremities: no ischemia, No edema, Full ROM - Abdominal General gastrointestinal: soft, non-tender, non-distended, normal bowel sounds - Integumentary Integumentary: Present: clear, warm, dry - Neurologic Neurologic: CNII-XII intact, moves all extremities Results - Labs CBC & Chem 7: 05/02/17 05:49 05/02/17 05:49 Labs: Laboratory Last Values WBC 8.2 K/mm3 (4.5-11.0) 05/02/17 05:49 RBC 4.12 M/mm3 (3.65-5.03) 05/02/17 05:49 Hgb 11.8 gm/dl (10.1-14.3) 05/02/17 05:49 Hct 36.4 % (30.3-42.9) 05/02/17 05:49 MCV 88 fl (79-97) 05/02/17 05:49 MCH 29 pg (28-32) 05/02/17 05:49 MCHC 33 % (30-34) 05/02/17 05:49 RDW 15.8 % (13.2-15.2) H 05/02/17 05:49 Plt Count 354 K/mm3 (140-440) 05/02/17 05:49 Lymph % (Auto) 33.4 % (13.4-35.0) 05/02/17 05:49 [place] % (Auto) 6.2 % (0.0-7.3) 05/02/17 05:49 Eos % (Auto) 1.9 % (0.0-4.3) 05/02/17 05:49 Baso % (Auto) 0.6 % (0.0-1.8) 05/02/17 05:49 Lymph # 2.8 K/mm3 (1.2-5.4) 05/02/17 05:49 [place] # 0.5 K/mm3 (0.0-0.8) 05/02/17 05:49 Eos # 0.2 K/mm3 (0.0-0.4) 05/02/17 05:49 Baso # 0.0 K/mm3 (0.0-0.1) 05/02/17 05:49 Seg Neutrophils % 57.9 % (40.0-70.0) 05/02/17 05:49 Seg Neutrophils # 4.8 K/mm3 (1.8-7.7) 05/02/17 05:49 Sodium 145 mmol/L (137-145) 05/02/17 05:49 Potassium 3.5 mmol/L (3.6-5.0) L 05/02/17 05:49 Chloride 105.9 mmol/L (98-107) 05/02/17 05:49 Carbon Dioxide 25 mmol/L (22-30) 05/02/17 05:49 Anion Gap 18 mmol/L 05/02/17 05:49 BUN 7 mg/dL (7-17) 05/02/17 05:49 Creatinine 0.6 mg/dL (0.7-1.2) L 05/02/17 05:49 Estimated GFR > 60 ml/min 05/02/17 05:49 BUN/Creatinine Ratio 12 % 05/02/17 05:49 Glucose 70 mg/dL (65-100) 05/02/17 05:49 POC Glucose 68 (70-105) L 05/02/17 05:50 Hemoglobin A1c 14.3 % (4-6) H 05/01/17 05:31 Calcium 7.9 mg/dL (8.4-10.2) L 05/02/17 05:49 Urine Color Yellow (Yellow) 04/28/17 Unknown Urine Turbidity Clear (Clear) 04/28/17 Unknown Urine pH 6.0 (5.0-7.0) 04/28/17 Unknown Ur Specific [place] 1.020 (1.003-1.030) 04/28/17 Unknown Urine Protein 100 mg/dl mg/dL (Negative) 04/28/17 Unknown Urine Glucose (UA) >=500 mg/dL (Negative) 04/28/17 Unknown Urine Ketones Tr mg/dL (Negative) 04/28/17 Unknown Urine Blood Mod (Negative) 04/28/17 Unknown Urine Nitrite Neg (Negative) 04/28/17 Unknown Urine Bilirubin Neg (Negative) 04/28/17 Unknown Urine Urobilinogen < 2.0 mg/dL (<2.0) 04/28/17 Unknown Ur Leukocyte Esterase Neg (Negative) 04/28/17 Unknown Urine WBC (Auto) 7.0 /HPF (0.0-6.0) H 04/28/17 Unknown Urine RBC (Auto) 6.0 /HPF (0.0-6.0) 04/28/17 Unknown U Epithel Cells (Auto) 5.0 /HPF (0-13.0) 04/28/17 Unknown Urine Mucus Few /HPF 04/28/17 Unknown Vancomycin Trough 10.9 ug/mL (5.0-20.0) 05/01/17 15:15
[2017-05-02] MEDS: NACL 0.45% 1000 ML 1,000 ML IV SCH (18:22)
[2017-05-02] MEDS: APRESOLINE IV PRN (18:45)
[2017-05-02] MEDS: PEPCID PO SCH (22:39)
[2017-05-02] MEDS: LEVEMIR SUB-Q SCH (22:40)
[2017-05-03] MEDS: NOVOLOG SUB-Q SCH ×5 (00:28→21:55)
[2017-05-03] MEDS: UNASYN/NS 3 GM/100 ML 3 GM/100 ML BAG IV SCH ×5 (01:00→23:33)
[2017-05-03 06:51] LABS: Basophils % (Auto) 0.6 % (0.0-1.8); Eosinophils # (Auto) 0.2 K/mm3 (0.0-0.4); Eosinophils % (Auto) 2.8 % (0.0-4.3); Hematocrit 36.9 % (30.3-42.9); Lymphocytes # (Auto) 2.4 K/mm3 (1.2-5.4); Lymphocytes % (Auto) 33.1 % (13.4-35.0); Mean Corpuscular HGB Conc 32 % (30-34); Mean Corpuscular Hemoglobin 29 pg (28-32); Mean Corpuscular Volume 89 fl (79-97); Monocytes # (Auto) 0.5 K/mm3 (0.0-0.8); Platelet Count 356 K/mm3 (140-440); Red Blood Count 4.13 M/mm3 (3.65-5.03); Red Cell Distribution Width 15.3 % (13.2-15.2)
[2017-05-03 08:35] LABS: BUN/Creatinine Ratio 18; Blood Urea Nitrogen 9 mg/dL (7-17); Calcium 7.9 mg/dL (8.4-10.2); Hemolysis Index 6
--- NOTE | 2017-05-03 08:46 | Progress Note ---
Assessment and Plan Assessment and plan: Sepsis - Continue IV antibiotics - Blood cultures negative so far Diabetic foot infection - Continue wound care -Sclera and orthopedics surgeons recommended again and debridement Diabetes mellitus type 2 -Sliding scale insulin and Novolin Hypertension - Continue home medications Costochondritis. - Etiology secondary to fall. No rib fractures. Pain control DVT prophylaxis. Continue Lovenox. Disposition Plan: possible discharge tomorrow History Interval history: Patient was seen and evaluated this morning, no fever, chills. Hospitalist Physical - Physical exam Narrative exam: Not in cardiopulmonary distress. The patient appeared well nourished and normally developed. Vital signs as documented. Head exam is unremarkable. No scleral icterus . Neck is without jugular venous distension, thyromegaly, or carotid bruits. Lungs are clear to auscultation. Cardiac exam reveals regular rate and Rhythm. First and second heart sounds normal. No murmurs, rubs or gallops. Abdominal exam reveals normal bowel sounds, no masses, no organomegaly and no aortic enlargement. Extremities right foot ulcer with offensive discharge. NEWS PRODUCER: Alert and oriented 3. No focal weakness. - Constitutional Vitals: Temp Pulse Resp BP Pulse Ox 98.3 F 100 H 20 184/94 97 05/02/17 19:55 05/02/17 19:55 05/02/17 19:55 05/02/17 19:55 05/02/17 19:55 General appearance: Present: no acute distress, well-nourished Results - Labs CBC & Chem 7: 05/03/17 05:55 05/03/17 05:55 Labs: Laboratory Last Values WBC 7.2 K/mm3 (4.5-11.0) 05/03/17 05:55 RBC 4.13 M/mm3 (3.65-5.03) 05/03/17 05:55 Hgb 12.0 gm/dl (10.1-14.3) 05/03/17 05:55 Hct 36.9 % (30.3-42.9) 05/03/17 05:55 MCV 89 fl (79-97) 05/03/17 05:55 MCH 29 pg (28-32) 05/03/17 05:55 MCHC 32 % (30-34) 05/03/17 05:55 RDW 15.3 % (13.2-15.2) H 05/03/17 05:55 Plt Count 356 K/mm3 (140-440) 05/03/17 05:55 Lymph % (Auto) 33.1 % (13.4-35.0) 05/03/17 05:55 [place] % (Auto) 7.0 % (0.0-7.3) 05/03/17 05:55 Eos % (Auto) 2.8 % (0.0-4.3) 05/03/17 05:55 Baso % (Auto) 0.6 % (0.0-1.8) 05/03/17 05:55 Lymph # 2.4 K/mm3 (1.2-5.4) 05/03/17 05:55 [place] # 0.5 K/mm3 (0.0-0.8) 05/03/17 05:55 Eos # 0.2 K/mm3 (0.0-0.4) 05/03/17 05:55 Baso # 0.0 K/mm3 (0.0-0.1) 05/03/17 05:55 Seg Neutrophils % 56.5 % (40.0-70.0) 05/03/17 05:55 Seg Neutrophils # 4.1 K/mm3 (1.8-7.7) 05/03/17 05:55 Sodium 144 mmol/L (137-145) 05/03/17 05:55 Potassium 4.1 mmol/L (3.6-5.0) 05/03/17 05:55 Chloride 105.9 mmol/L (98-107) 05/03/17 05:55 Carbon Dioxide 24 mmol/L (22-30) 05/03/17 05:55 Anion Gap 18 mmol/L 05/03/17 05:55 BUN 9 mg/dL (7-17) 05/03/17 05:55 Creatinine 0.5 mg/dL (0.7-1.2) L 05/03/17 05:55 Estimated GFR > 60 ml/min 05/03/17 05:55 BUN/Creatinine Ratio 18 % 05/03/17 05:55 Glucose 104 mg/dL (65-100) H 05/03/17 05:55 POC Glucose 114 (70-105) H 05/03/17 05:20 Hemoglobin A1c 14.3 % (4-6) H 05/01/17 05:31 Calcium 7.9 mg/dL (8.4-10.2) L 05/03/17 05:55 Urine Color Yellow (Yellow) 04/28/17 Unknown Urine Turbidity Clear (Clear) 04/28/17 Unknown Urine pH 6.0 (5.0-7.0) 04/28/17 Unknown Ur Specific [place] 1.020 (1.003-1.030) 04/28/17 Unknown Urine Protein 100 mg/dl mg/dL (Negative) 04/28/17 Unknown Urine Glucose (UA) >=500 mg/dL (Negative) 04/28/17 Unknown Urine Ketones Tr mg/dL (Negative) 04/28/17 Unknown Urine Blood Mod (Negative) 04/28/17 Unknown Urine Nitrite Neg (Negative) 04/28/17 Unknown Urine Bilirubin Neg (Negative) 04/28/17 Unknown Urine Urobilinogen < 2.0 mg/dL (<2.0) 04/28/17 Unknown Ur Leukocyte Esterase Neg (Negative) 04/28/17 Unknown Urine WBC (Auto) 7.0 /HPF (0.0-6.0) H 04/28/17 Unknown Urine RBC (Auto) 6.0 /HPF (0.0-6.0) 04/28/17 Unknown U Epithel Cells (Auto) 5.0 /HPF (0-13.0) 04/28/17 Unknown Urine Mucus Few /HPF 04/28/17 Unknown Vancomycin Trough 10.9 ug/mL (5.0-20.0) 05/01/17 15:15
[2017-05-03] MEDS: PEPCID PO SCH ×2 (10:27→21:54)
[2017-05-03] MEDS: ZESTRIL PO SCH (10:27)
[2017-05-03] MEDS: VANCOMYCIN 1,250 MG in NACL 0.9% 250ML 250 ML IV SCH ×2 (10:28→20:21)
[2017-05-03] MEDS: LEVEMIR SUB-Q SCH (21:54)
[2017-05-04] MEDS: NACL 0.45% 1000 ML 1,000 ML IV SCH (05:49)
[2017-05-04] MEDS: UNASYN/NS 3 GM/100 ML 3 GM/100 ML BAG IV SCH ×4 (05:49→23:55)
[2017-05-04 07:35] LABS: BUN/Creatinine Ratio 18; Blood Urea Nitrogen 9 mg/dL (7-17); Calcium 7.9 mg/dL (8.4-10.2); Hemolysis Index 0
[2017-05-04] MEDS: NOVOLOG SUB-Q SCH ×4 (09:01→22:45)
[2017-05-04] MEDS: VANCOMYCIN 1,250 MG in NACL 0.9% 250ML 250 ML IV SCH ×2 (09:16→22:49)
[2017-05-04] MEDS: ZESTRIL PO SCH (09:36)
[2017-05-04] MEDS: PEPCID PO SCH ×2 (09:37→22:44)
--- NOTE | 2017-05-04 12:33 | Vascular Lab Report ---
LOWER EXTREMITY ARTERIAL DUPLEX: REASON FOR EXAM: Ulceration and peripheral vascular disease. COMMENTS ON THE RIGHT: Triphasic waveforms are seen proximally. Triphasic waveforms are seen distally. No significant velocity gradients are identified. Some plaque noted in the popliteal arteries without elevated velocities. Findings are consistent with normal perfusion. Findings are consistent with the ability to heal distal wounds. COMMENTS ON THE LEFT: Triphasic and biphasic waveforms are seen proximally. Biphasic waveforms are seen distally. No significant velocity gradients are identified. Some plaque noted in the popliteal arteries without elevated velocities. Findings are consistent with abnormal perfusion. Findings are consistent with the ability to heal distal wounds. IMPRESSION: RIGHT: Essentially normal arterial flow. LEFT:Mild arterial disease indicated by biphasic waveforms distally.
--- NOTE | 2017-05-04 12:38 | Vascular Lab Report ---
LOWER EXTREMITY ARTERIAL PHYSIOLOGIC STUDY: REASON FOR EXAM: Peripheral arterial disease. COMMENTS ON THE RIGHT: Ankle brachial index is 1.22. This value is slightly elevated. Toe brachial index is noncompressible. This value is abnormal. Waveform is preserved. Wound healing is likely. Pulse volume recording at the level of the ankle is relatively normal with slight spectral broadening. Exercise testing was not done. COMMENTS ON THE LEFT: Ankle brachial index is 1.18. This value is slightly elevated. Toe brachial index is noncompressible. This value is abnormal. Waveform is preserved. Wound healing is likely. Pulse volume recording at the level of the ankle is relatively normal with slight spectral broadening. Exercise testing was not done. IMPRESSION: RIGHT: Mild arterial calcification with preserved waveforms. ABIs are slightly elevated from arterial calcification. TBI are noncompressible. LEFT:Mild arterial calcification with preserved waveforms. ABIs are slightly elevated from arterial calcification. TBI are noncompressible.
--- NOTE | 2017-05-04 13:06 | Consultation ---
History of Present Illness - Reason for Consult Consult date: 05/04/17 cellulitis Requesting physician: RAMIN LOPES - History of Present Illness I feel better today Microbiology: Blood cultures: 04/29 ngtd Urine cultures: Respiratory cultures: Prevoius Antimicrobials: Current Antimicrobials: Unysyn 04/29 Vancomycin 04/29 Past History Past Medical History: diabetes, hypertension Social history: no significant social history Family history: no significant family history Medications and Allergies Allergies Allergy/AdvReac Type Severity Reaction Status Date / Time No Known Allergies Allergy Unverified 06/22/16 11:07 Home Medications Medication Instructions Recorded Confirmed Last Taken Type Insulin Glargine [Lantus VIAL] 20 unit SUB-Q QHS #1000 units 06/22/16 04/29/17 Unknown Rx Lisinopril [Zestril TAB] 20 mg PO QDAY #30 tablet 06/22/16 04/29/17 Unknown Rx Metformin HCl [Glucophage] 500 mg PO QDAY #30 tablet 06/22/16 04/29/17 Unknown Rx Active Meds: Active Medications Acetaminophen (Tylenol) 650 mg PO Q4H PRN PRN Reason: Pain MILD(1-3)/Fever >100.5/COTTRELL Bisacodyl (Dulcolax) 10 mg MN QDAY PRN PRN Reason: Constipation unrelieved by MOM Famotidine (Pepcid) 20 mg PO BID [facility] Last Admin: 05/04/17 09:37 Dose: 20 mg Hydralazine HCl (Apresoline) 10 mg IV Q3HR PRN PRN Reason: Hypertension Last Admin: 05/02/17 18:45 Dose: 10 mg Sodium Chloride (Nacl 0.45% 1000 Ml) 1,000 mls @ 42 mls/hr IV DIRECT [facility] Last Admin: 05/04/17 05:49 Dose: 42 mls/hr Ampicillin Sodium/Sulbactam Sodium (Unasyn/Ns 3 Gm/100 Ml) 3 gm in 100 mls @ 100 mls/hr IV Q6HR VERITO PRN Reason: Protocol Last Admin: 05/04/17 05:49 Dose: 100 mls/hr Vancomycin HCl 1,250 mg/ (Sodium Chloride) 262.5 mls @ 166.667 mls/hr IV Q12H [facility] Last Admin: 05/04/17 09:16 Dose: 166.667 mls/hr Insulin Aspart (Novolog) 0 units SUB-Q ACHS [facility] PRN Reason: Protocol Last Admin: 05/04/17 12:49 Dose: Not Given Insulin Detemir (Levemir) 20 units SUB-Q QHS [facility] Last Admin: 05/03/17 21:54 Dose: 20 units Insulin Human Isoph/Insulin Regular (Novolin 70/30) 25 unit SUB-Q BIDDIAB [facility] Last Admin: 05/04/17 09:02 Dose: Not Given Lisinopril (Zestril) 20 mg PO QDAY [facility] Last Admin: 05/04/17 09:36 Dose: 20 mg Magnesium Hydroxide (Milk Of Magnesia) 30 ml PO Q4H PRN PRN Reason: Constipation Last Admin: 05/03/17 21:54 Dose: 30 ml Morphine Sulfate (Morphine) 2 mg IV Q4H PRN PRN Reason: Pain, Moderate (4-6) Ondansetron HCl (Zofran) 4 mg IV Q8H PRN PRN Reason: N/V unrelieved by Reglan Last Admin: 05/01/17 01:01 Dose: 4 mg Vancomycin HCl (Vancomycin Pharmacy To Dose) 1 each IV PKCONSULT [facility] PRN Reason: Protocol Physical Examination - Physical Exam Narrative exam: Not in cardiopulmonary distress. The patient appeared well nourished and normally developed. Vital signs as documented. Head exam is unremarkable. No scleral icterus . Neck is without jugular venous distension, thyromegaly, or carotid bruits. Lungs are clear to auscultation. Cardiac exam reveals regular rate and Rhythm. First and second heart sounds normal. No murmurs, rubs or gallops. Abdominal exam reveals normal bowel sounds, no masses, no organomegaly and no aortic enlargement. Extremities right foot ulcer with offensive discharge. 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 No focal weakness. - Constitutional Vitals: Vital Signs Temp Pulse Resp BP Pulse Ox 97.5 F L 86 20 173/89 98 05/04/17 08:05 05/04/17 09:36 05/04/17 08:05 05/04/17 09:36 05/04/17 00:41 Temperature -Last 24 Hours Temperature 97.5 F Temperature 98.8 F Temperature 98.7 F Results - Labs CBC & Chem 7: 05/03/17 05:55 05/04/17 05:12 Labs: Abnormal lab results 05/03/17 05/03/17 05/04/17 Range/Units 16:28 21:14 05:12 Sodium 147 H (137-145) mmol/L Chloride 107.9 H (98-107) mmol/L Creatinine 0.5 L (0.7-1.2) mg/dL POC Glucose 290 H 255 H (70-105) Calcium 7.9 L (8.4-10.2) mg/dL 05/04/17 Range/Units 12:49 Sodium (137-145) mmol/L Chloride (98-107) mmol/L Creatinine (0.7-1.2) mg/dL POC Glucose 139 H (70-105) Calcium (8.4-10.2) mg/dL Assessment and Plan Assessment: 1) Right great toe diabetic ulcer with necrosis / ?gangrene: ?osteomyelitis, cellulitis? 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 Tatiana Vitale NP-C for Dr. Roxy Strickland MD Infectious Diseases Specialist [facility] ([facility] M [phone] O [phone]
--- NOTE | 2017-05-04 15:51 | Progress Note ---
Assessment and Plan Assessment and plan: Sepsis - Improved-Continue IV antibiotics - Blood cultures negative so far Diabetic foot infection - Continue wound care -orthopedics surgeons recommended againt debridement ID consulted Diabetes mellitus type 2 -Sliding scale insulin and Novolin Hypertension - Continue home medications Costochondritis. - Etiology secondary to fall. No rib fractures. Pain control DVT prophylaxis. Continue Lovenox. History Interval history: Patient was seen and examined. She denies chest pain shortness of breath nausea vomiting. Labs and nursing notes reviewed Hospitalist Physical - Constitutional Vitals: Temp Pulse Resp BP Pulse Ox 97.5 F L 86 20 173/89 98 05/04/17 08:05 05/04/17 09:36 05/04/17 08:05 05/04/17 09:36 05/04/17 00:41 General appearance: Present: no acute distress, well-nourished - EENT Eyes: Present: PERRL, EOM intact ENT: hearing intact, clear oral mucosa - Neck Neck: Present: supple, normal ROM - Respiratory Respiratory effort: normal Respiratory: bilateral: CTA - Cardiovascular Rhythm: regular Heart Sounds: Present: S1 & S2 - Extremities Extremities: no ischemia Extremity abnormal: other (right foot ulcer) - Abdominal General gastrointestinal: soft, non-tender - Integumentary Integumentary: Present: clear, warm, dry - Psychiatric Psychiatric: appropriate mood/affect, cooperative - Neurologic Neurologic: CNII-XII intact, moves all extremities - Allied Health Allied health notes reviewed: nursing Results - Labs CBC & Chem 7: 05/03/17 05:55 05/05/17 11:40 Labs: Laboratory Last Values WBC 7.2 K/mm3 (4.5-11.0) 05/03/17 05:55 RBC 4.13 M/mm3 (3.65-5.03) 05/03/17 05:55 Hgb 12.0 gm/dl (10.1-14.3) 05/03/17 05:55 Hct 36.9 % (30.3-42.9) 05/03/17 05:55 MCV 89 fl (79-97) 05/03/17 05:55 MCH 29 pg (28-32) 05/03/17 05:55 MCHC 32 % (30-34) 05/03/17 05:55 RDW 15.3 % (13.2-15.2) H 05/03/17 05:55 Plt Count 356 K/mm3 (140-440) 05/03/17 05:55 Lymph % (Auto) 33.1 % (13.4-35.0) 05/03/17 05:55 Mitchell % (Auto) 7.0 % (0.0-7.3) 05/03/17 05:55 Eos % (Auto) 2.8 % (0.0-4.3) 05/03/17 05:55 Baso % (Auto) 0.6 % (0.0-1.8) 05/03/17 05:55 Lymph # 2.4 K/mm3 (1.2-5.4) 05/03/17 05:55 Mitchell # 0.5 K/mm3 (0.0-0.8) 05/03/17 05:55 Eos # 0.2 K/mm3 (0.0-0.4) 05/03/17 05:55 Baso # 0.0 K/mm3 (0.0-0.1) 05/03/17 05:55 Seg Neutrophils % 56.5 % (40.0-70.0) 05/03/17 05:55 Seg Neutrophils # 4.1 K/mm3 (1.8-7.7) 05/03/17 05:55 Sodium 147 mmol/L (137-145) H 05/04/17 05:12 Potassium 4.4 mmol/L (3.6-5.0) 05/04/17 05:12 Chloride 107.9 mmol/L (98-107) H 05/04/17 05:12 Carbon Dioxide 26 mmol/L (22-30) 05/04/17 05:12 Anion Gap 18 mmol/L 05/04/17 05:12 BUN 9 mg/dL (7-17) 05/04/17 05:12 Creatinine 0.5 mg/dL (0.7-1.2) L 05/04/17 05:12 Estimated GFR > 60 ml/min 05/04/17 05:12 BUN/Creatinine Ratio 18 % 05/04/17 05:12 Glucose 68 mg/dL (65-100) 05/04/17 05:12 POC Glucose 139 (70-105) H 05/04/17 12:49 Hemoglobin A1c 14.3 % (4-6) H 05/01/17 05:31 Calcium 7.9 mg/dL (8.4-10.2) L 05/04/17 05:12 Urine Color Yellow (Yellow) 04/28/17 Unknown Urine Turbidity Clear (Clear) 04/28/17 Unknown Urine pH 6.0 (5.0-7.0) 04/28/17 Unknown Ur Specific [place] 1.020 (1.003-1.030) 04/28/17 Unknown Urine Protein 100 mg/dl mg/dL (Negative) 04/28/17 Unknown Urine Glucose (UA) >=500 mg/dL (Negative) 04/28/17 Unknown Urine Ketones Tr mg/dL (Negative) 04/28/17 Unknown Urine Blood Mod (Negative) 04/28/17 Unknown Urine Nitrite Neg (Negative) 04/28/17 Unknown Urine Bilirubin Neg (Negative) 04/28/17 Unknown Urine Urobilinogen < 2.0 mg/dL (<2.0) 04/28/17 Unknown Ur Leukocyte Esterase Neg (Negative) 04/28/17 Unknown Urine WBC (Auto) 7.0 /HPF (0.0-6.0) H 04/28/17 Unknown Urine RBC (Auto) 6.0 /HPF (0.0-6.0) 04/28/17 Unknown U Epithel Cells (Auto) 5.0 /HPF (0-13.0) 04/28/17 Unknown Urine Mucus Few /HPF 04/28/17 Unknown Vancomycin Trough 10.9 ug/mL (5.0-20.0) 05/01/17 15:15
[2017-05-04] MEDS: APRESOLINE IV PRN (17:48)
[2017-05-04] MEDS: LEVEMIR SUB-Q SCH (22:45)
[2017-05-05] MEDS: APRESOLINE IV PRN (01:15)
[2017-05-05] MEDS: UNASYN/NS 3 GM/100 ML 3 GM/100 ML BAG IV SCH ×2 (05:20→12:08)
[2017-05-05] MEDS: VANCOMYCIN 1,250 MG in NACL 0.9% 250ML 250 ML IV SCH (08:23)
[2017-05-05] MEDS: NOVOLOG SUB-Q SCH (08:23)
[2017-05-05 09:02] VITALS: BP 162/85
--- NOTE | 2017-05-05 09:07 | Progress Note ---
Assessment and Plan Assessment: 1) Right great toe diabetic ulcer with necrosis: cellulitis?. CRP=3.2. Doubt osteo -art Doppler normal 2) DM: poorly controlled Plan: -continue unasyn and vancomycin for now -obtain deep wound culture -needs Wound care Dr Mendoza -cancel MRI foot -upon discharge will do ceftin 500 mg po q12h and doxycycline 100 mg po q12h total 14 days -if wound is not better in 2 weeks she needs MRI -strict diabetes control - she has no PCP Patient demanding to go home with her kids and work Roxy Dickey Subjective Date of service: 05/05/17 Principal diagnosis: diabetic wound infection Interval history: Feels ok wants to go home, no fever no pain Microbiology: Blood cultures: 04/29 ngtd Urine cultures: Respiratory cultures: Prevoius Antimicrobials: Current Antimicrobials: Unysyn 04/29 Vancomycin 04/29 Objective - Exam Narrative Exam: The patient appeared well nourished and normally developed. Vital signs as documented. Head exam is unremarkable. No scleral icterus . Neck is without jugular venous distension, thyromegaly, or carotid bruits. Lungs are clear to auscultation. Cardiac exam reveals regular rate and Rhythm. First and second heart sounds normal. No murmurs, rubs or gallops. Abdominal exam reveals normal bowel sounds, no masses, no organomegaly and no aortic enlargement. Extremities right foot ulcer with offensive discharge. 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 No focal weakness. - Constitutional Vitals: Vital Signs Temp Pulse Resp BP Pulse Ox 98.7 F 83 20 162/85 98 05/05/17 08:01 05/05/17 08:01 05/05/17 08:01 05/05/17 08:01 05/05/17 08:01 Temperature -Last 24 Hours Temperature 98.7 F Temperature 98.9 F Temperature 98.2 F Temperature 98.5 F Temperature 97.4 F Temperature 97.6 F - Labs CBC & Chem 7: 05/03/17 05:55 05/04/17 05:12 Labs: Abnormal lab results 05/04/17 05/04/17 05/04/17 Range/Units 12:49 17:25 17:35 POC Glucose 139 H 248 H (70-105) C-Reactive Protein 3.20 H (0.00-1.30) mg/dL 05/04/17 05/05/17 Range/Units 21:00 06:11 POC Glucose 203 H 217 H (70-105) C-Reactive Protein (0.00-1.30) mg/dL
--- NOTE | 2017-05-05 09:22 | Discharge Summary ---
Providers - Providers Date of Admission: 04/29/17 04:58 Attending physician: VALERIA GODINEZ MD 04/30/17 05:42 Consult to Wound/ET Nurse [CONS] Routine Reason For Exam: wound eval 04/30/17 07:33 Consult to Physician [CONS] Routine Consulting Provider: MADIE RODRIGUEZ Reason For Exam: Rt foot cellulitis/ulcer Place consult to:: SURG Notified:: Y If yes, spoke with:: DR RODRIGUEZ Time called:: 09:45 04/30/17 09:50 Consult to Physician [CONS] Routine Consulting Provider: MARLON KUHN Reason For Exam: Rt foot cellulitis/ulcer Place consult to:: LUIS Notified:: Y Was contact made?: Yes If yes, spoke with:: DR KUHN Time called:: 11:05 05/01/17 10:02 Consult to Physician [CONS] Routine Consulting Provider: AMELIA ACEVEDO Reason For Exam: right toe wound with palpable pulses Place consult to:: Dr. Acevedo Notified:: DR. ACEVEDO Phone number called:: INHOUSE Was contact made?: Yes If yes, spoke with:: DR. ACEVEDO Time called:: 11:39 Comment:: ALPHONSO NOTIFIED 05/04/17 08:39 Consult to Physician [CONS] Routine Consulting Provider: DARIUS THOMAS Reason For Exam: sepsis Place consult to:: [place] Notified:: yes Phone number called:: [phone] Time called:: 09:20 Primary care physician: LEEROY MARINO Hospitalization Condition: Stable Time spent for discharge: 31 minutes Core Measure Documentation - Palliative Care Palliative Care/ Comfort Measures: Not Applicable - Core Measures Any of the following diagnoses?: none Exam - Physical Exam Narrative exam: Not in cardiopulmonary distress. The patient appeared well nourished and normally developed. Vital signs as documented. Head exam is unremarkable. No scleral icterus . Neck is without jugular venous distension, thyromegaly, or carotid bruits. Lungs are clear to auscultation. Cardiac exam reveals regular rate and Rhythm. First and second heart sounds normal. No murmurs, rubs or gallops. Abdominal exam reveals normal bowel sounds, no masses, no organomegaly and no aortic enlargement. Extremities right foot ulcer with offensive discharge. 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 - Constitutional Vitals: Temp Pulse Resp BP Pulse Ox 98.7 F 83 20 162/85 98 05/05/17 08:01 05/05/17 08:01 05/05/17 08:01 05/05/17 08:01 05/05/17 08:01 Plan Activity: no restrictions Weight Bearing Status: Weight Bear as Tolerated Diet: diabetic Follow up with: LEEROY MARINO MD [Primary Care Provider] - 3-5 Days Prescriptions: Cefuroxime [Ceftin] 250 mg PO Q12H #32 tablet Doxycycline [Vibramycin CAP] 100 mg PO Q12HR #16 capsule
[2017-05-05 09:46] LABS: Blood Urea Nitrogen TNR mg/dL (7-17)
[2017-05-05 09:47] LABS: BUN/Creatinine Ratio TNR; Calcium TNR mg/dL (8.4-10.2); Hemolysis Index TNR
--- NOTE | 2017-05-05 10:12 | Discharge Summary ---
Providers - Providers Date of Admission: 04/29/17 04:58 Date of discharge: 05/05/17 Attending physician: VALERIA GODINEZ MD 04/30/17 05:42 Consult to Wound/ET Nurse [CONS] Routine Reason For Exam: wound eval 04/30/17 07:33 Consult to Physician [CONS] Routine Consulting Provider: MADIE RODRIGUEZ Reason For Exam: Rt foot cellulitis/ulcer Place consult to:: SURG Notified:: Y If yes, spoke with:: DR RODRIGUEZ Time called:: 09:45 04/30/17 09:50 Consult to Physician [CONS] Routine Consulting Provider: MARLON KUHN Reason For Exam: Rt foot cellulitis/ulcer Place consult to:: LUIS Notified:: Y Was contact made?: Yes If yes, spoke with:: DR KUHN Time called:: 11:05 05/01/17 10:02 Consult to Physician [CONS] Routine Consulting Provider: AMELIA ACEVEDO Reason For Exam: right toe wound with palpable pulses Place consult to:: Dr. Acevedo Notified:: DR. ACEVEDO Phone number called:: INHOUSE Was contact made?: Yes If yes, spoke with:: DR. ACEVEDO Time called:: 11:39 Comment:: ALPHONSO NOTIFIED 05/04/17 08:39 Consult to Physician [CONS] Routine Consulting Provider: DARIUS THOMAS Reason For Exam: sepsis Place consult to:: [place] Notified:: yes Phone number called:: [phone] Time called:: 09:20 Primary care physician: LEEROY MARINO Hospitalization Condition: Stable Pertinent studies: Right foot x-ray showed no acute bony abnormality Rib series is negative chest x-ray showed no acute consolidative infiltrate Ankle brachial index is 1.22 to on the right and 1.18 on the left. Mild arterial calcification with preserved wave forms. ABIs are slightly elevated from arterial calcification TB are noncompressible bilaterally Hospital course: 52 y/o woman with pmh of HTN and DM noncompliant comes in for Rt great toe infection ulcer and rt foot swelling.No fever or chills She fell last week and bruised her left ribs and she has since developed a right great toe with redness and swelling to the right foot Patient presented with leukocytosis and was treated with IV antibiotics after which she became clinically stable. Patient was found to be hyperglycemic and was treated with insulin after which her glucose stabilize. She will resume home medication and was discharged to self-care with antibiotics to be completed at home. Discharge diagnoses Sepsis Diabetic foot infection Diabetes type 2 Hypertension Costochondritis DVT prophylaxis Disposition: DC-01 TO HOME OR SELFCARE Time spent for discharge: 35 minutes Core Measure Documentation - Palliative Care Palliative Care/ Comfort Measures: Not Applicable - Core Measures Any of the following diagnoses?: none Exam - Constitutional Vitals: Temp Pulse Resp BP Pulse Ox 98.7 F 83 20 162/85 98 05/05/17 08:01 05/05/17 08:01 05/05/17 08:01 05/05/17 08:01 05/05/17 08:01 General appearance: Present: no acute distress, well-nourished - EENT Eyes: Present: PERRL ENT: hearing intact, clear oral mucosa - Neck Neck: Present: supple, normal ROM - Respiratory Respiratory effort: normal Respiratory: bilateral: CTA - Cardiovascular Heart Sounds: Present: S1 & S2. Absent: rub, click - Extremities Extremities: pulses symmetrical (right foot ulcer), No edema Peripheral Pulses: within normal limits - Abdominal General gastrointestinal: Present: soft, non-tender, non-distended, normal bowel sounds Female genitourinary: Present: deferred - Rectal Rectal Exam: deferred - Integumentary Integumentary: Present: clear, warm, dry - Musculoskeletal Musculoskeletal: gait normal, strength equal bilaterally - Psychiatric Psychiatric: appropriate mood/affect, intact judgment & insight - Neurologic Neurologic: CNII-XII intact, moves all extremities - Allied Health Allied health notes reviewed: nursing Plan Diet: low fat, low cholesterol, low salt Follow up with: LEEROY MARINO MD [Primary Care Provider] - 3-5 Days Prescriptions: Cefuroxime [Ceftin] 250 mg PO Q12H #32 tablet Doxycycline [Vibramycin CAP] 100 mg PO Q12HR #16 capsule
[2017-05-05] MEDS: ZESTRIL PO SCH (11:22)
[2017-05-05] MEDS: PEPCID PO SCH (11:23)
[2017-05-05 12:23] LABS: BUN/Creatinine Ratio 17; Blood Urea Nitrogen 10 mg/dL (7-17); Calcium 8.4 mg/dL (8.4-10.2); Hemolysis Index 2
[2017-05-05] MEDS ORDERED: Fluarix Quad 2017-2018(36 MOS+ IM ONE (15:00)
[2017-05-06] MEDS ORDERED: PNEUMOVAX 23 IM ONE (12:00)
== END 2017-05-05 15:40 | disposition home or self-care (01) | DRG 872 ==
LOC: ED 18:08 → 3A 04-29 04:58
PROVIDERS: ADMIT Internal Medicine; ATTEND Internal Medicine
PROC: 3E0234Z Introduction of Serum, Toxoid and Vaccine into Muscle, Percutaneous Approach (ICD-10-PCS; principal; 2017-05-05)
DX: A41.9 Sepsis, unspecified organism (principal); E11.69 Type 2 diabetes mellitus with other specified complication; F32.9 Major depressive disorder, single episode, unspecified; I10 Essential (primary) hypertension; E11.40 Type 2 diabetes mellitus with diabetic neuropathy, unspecified; F17.200 Nicotine dependence, unspecified, uncomplicated; E11.621 Type 2 diabetes mellitus with foot ulcer; L97.519 Non-pressure chronic ulcer of other part of right foot with unspecified severity; M94.0 Chondrocostal junction syndrome [Tietze]; Z79.4 Long term (current) use of insulin; Z91.14 Patient's other noncompliance with medication regimen; Z79.899 Other long term (current) drug therapy; Z23 Encounter for immunization
CPT/HCPCS: 36415; 71046; 80048; 80202; 81001; 82962; 83036; 85025; 86140; 87040; 90686; 93922; 93925; J0295; J0360; J1815; J1818; J2405; J3370; J7030; J7040; J7050